=== PATIENT | male | born 1995 ===

== ENCOUNTER → 2021-09-09 | Day surgery (SDC) | payer OTHER ==
[~2021-09-09] VITALS: Ht 182.9 cm; Wt 108.9 kg
[~2021-09-09] MED LIST: LITHIUM PO; ZOLOFT50 MG PO; ZYPREXA 5MG TABL5 MG PO
[2021-09-09 12:44] LABS: BASOPHIL 0.8 % (0-2); EOSINOPHIL 3.2 % (0-5); HCT 46.8 % (42.0-52.0); HGB 15.6 g/dl (13.2-18.0); MCH 27.3 pg (25.0-31.0); MCHC 33.3 g/dL (32.0-36.0); MONOCYTE 6.8 % (0-12); MPV 11.8 fL (6.0-9.5); NEUTROPHIL 57.9 % (41-80); NRBC 0; PLT 217 K/uL (150-400); RBC 5.71 M/uL (4.70-6.00); RDW 12.3 % (11.5-14.0); WBC 6.3 K/uL (4.0-10.5)
[2021-09-09 12:55] LABS: ALBUMIN 3.7 g/dL (3.4-5.0); BILIRUBIN - TOTAL 0.8 mg/dL (0.2-1.0); BUN/CREAT RATIO (CALC) 18.3 RATIO; CREATININE 0.71 mg/dL (0.67-1.17); GLOBULIN (CALCULATION) 4.1 g/dL; POTASSIUM 4.3 mmol/L (3.5-5.1); TOTAL PROTEIN 7.8 g/dL (6.4-8.2)
== END | disposition home or self-care (01) ==
LOC: FAS 10:31
PROVIDERS: Oral & Maxillofacial Surgery
DX: K02.9 Dental caries, unspecified (principal); K01.1 Impacted teeth; F31.9 Bipolar disorder, unspecified; F84.0 Autistic disorder; F17.200 Nicotine dependence, unspecified, uncomplicated; E78.00 Pure hypercholesterolemia, unspecified; F41.9 Anxiety disorder, unspecified
CPT/HCPCS: D7210 ×4; D7240 ×5; 36415; 80053; 85025; 93005; J1100; J2550; J2704; J3010; J7120